=== PATIENT | female | born 1985 | race Hispanic/Latino ===

== ENCOUNTER → 2019-01-30 | Emergency (ER) | payer BC ==
[~2019-01-30] VITALS: Ht 170.2 cm; Wt 74.6 kg
[~2019-01-30] MED LIST: AZITHROMYCIN 250 MG TAB ONE; AZITHROMYCIN 250 MG TAB PO STA; CEFTRIAXONE SOD 1 GM VIAL ONE; CEFTRIAXONE SOD 1 GRAM/0.9% SOD CHL 50ML BAG IV STA; DOXYCYCLINE 100MG/NS 100ML 100 ML IV STA; IOPAMIDOL 370 MG/ML 200 ML INFUS..BTL INJ ONE; KETOROLAC TROMETHAMINE 30 MG/ML VIAL IV STA; SODIUM CHLORIDE 0.9% 1000ML 1,000 ML IV SCH; SODIUM CHLORIDE 0.9% 50ML 50 ML ONE
--- NOTE | 2019-01-31 00:28 | Diagnostic Imaging Report ---
EXAM: Transabdominal and Transvaginal Pelvic Ultrasound INDICATION: Pelvic pain. Fever. COMPARISON: None TECHNIQUE: Grayscale transverse and sagittal transabdominal and transvaginal images were obtained of the pelvis. Transvaginal imaging was medically necessary to better evaluate the endometrium and the adnexa. CLINICAL HISTORY: 33 year old A0; last menstrual period: 01/18/2019. FINDINGS: Uterus Orientation: Normal Size: 7.4 x 4.5 x 5.4 cm, Normal Mass: None Cervix: Nabothian cysts. Endometrium: Thickness: 1.0 cm, Normal. Appearance: Small volume of simple appearing free fluid within the endometrial canal. Right ovary: Size: 5.6 x 6.2 x 5.9 cm Mass/Cyst: Large complex cystic lesion with irregular thick ill-defined rice measuring 3.6 x 5.4 x 5.9 cm in sagittal, AP and transverse dimensions and containing diffuse low-level internal echoes. Left ovary: Size: 2.8 x 2.8 x 2.7 cm Mass/Cyst: None Adnexa: Normal Cul-de-sac: No free fluid IMPRESSION: 1. 5.9 cm complex lesion in the right ovary containing low-level internal echoes concerning for tubo-ovarian abscess in this patient's clinical scenario and provided prior history of PID. Endometrioma and hemorrhagic cyst could also have this appearance. Recommend follow-up after treatment to document resolution. 2. Small volume of fluid within the endometrial cavity. Signed by: Dr. Lourdes Graves M.D. on 01/31/2019 12:24 AM
== END | disposition short-term general hospital (02) ==
LOC: ER 20:35
DX: R10.2 Pelvic and perineal pain (principal); R19.09 Other intra-abdominal and pelvic swelling, mass and lump; N72 Inflammatory disease of cervix uteri
CPT/HCPCS: 76856; 80048; 80076; 81003; 81025; 87800; 99284; J0696; J1885